=== PATIENT | female | born 1980 | race Caucasian/White ===

== ENCOUNTER 2018-11-20 05:33 | Inpatient (IN) | payer OTHER ==
[~2018-11-20] VITALS: Ht 167.6 cm; Wt 93.7 kg
[~2018-11-20 05:33] MED LIST: DOXY1TAB3 PO; FER325 PO; OMEP10CA4 PO; PREN-15 PO
[2018-11-20 05:44] VITALS: BP 100/66; PULSE 76; RESP 18
[2018-11-20 06:16] VITALS: Ht 167.6 cm; Wt 93.7 kg
--- NOTE | 2018-11-20 08:39 | TRIAGE ---
OB Triage Datetime Report Generated by CPN: 11/20/2018 08:38 Datetime: 11/20/2018 07:00 Labor Evaluation Frequency: x3 Monitor Mode: External Duration (sec)2399: 60-150 Quality: Mild Pattern: Normal: <= 5 Contractions in 10 Minutes Resting Tone [place]: Relaxed Heart Rate FHR Baseline Rate: 140 Monitor Mode: External US Variability: Moderate 6-25 bpm Accelerations: 15X15 Decelerations: None Category: Category I Datetime: 11/20/2018 06:00 Labor Evaluation Frequency: x1 Monitor Mode: External Duration (sec)2399: 170 Quality: Mild Pattern: Normal: <= 5 Contractions in 10 Minutes Resting Tone [place]: Relaxed Heart Rate FHR Baseline Rate: 135 Monitor Mode: External US Variability: Minimal - Undetectable to <=5 bpm Accelerations: 15X15 Category: Category II Datetime: 11/20/2018 05:47 Time of Arrival: 11/20/2018 05:25 EGA: 37.0 Arrived By: Wheelchair Arrived From: Home Chief Complaint: UC's Movement: Decreased Contractions: Regular Time Contractions Began: 11/19/2018 22:30 Contractions: Every 5 min Rupture of Membranes: Denies Vaginal Bleeding: None Vaginal Discharge: Denies Recent Sexual Intercouse: Denies Abdominal Trauma: Not Applicable Patient Complaints: Contractions Time Provider Notified: 11/20/2018 06:10 Provider Notified: Dr. Rasmussen Initial Plan: CEFM, VE Datetime: 11/20/2018 05:44 Stage of : OB Triage Assessment Type: Triage Maternal Assessment Level of Consciousness: Keenly Alert, Responsive DTR's/Clonus: DTRs 2+; No Clonus Headache: Denies Blurred Vision: No Respiratory Effort: Unlabored; Regular Rhythm; Equal Expansion Breath Sounds, Left: Clear and Equal Breath Sounds, Right: Clear and Equal Nausea/Vomiting: Denies RUQ Epigastric Pain: Denies Lower Extremities Edema: Bilateral Lower Extremities Degree: 2+ Upper Extremities Edema: None Degree: None Facial Edema: None Temperature Route: Oral Fall Risk Assessment History of Falling: (0) No Secondary Diagnosis: (0) No Ambulatory Aid: (0) Bedrest/Nurse Assist IV Therapy: (0) No Gait: (0) Normal/Bedrest/Immobile Mental Status: (0) Oriented to Own Ability Fall Score: 0 Fall Risk Score Definition: No Risk: No action required Pain Assessment Pain Scale: 6 Pain Presence: Intermittent Pain Type: Cramping Pain Location: Abdomen Datetime: 11/20/2018 05:36 Vaginal Exam Dilatation (cms): 2.0 Effacement (%): 70 Station: -2 Exam By: Estela Zamora RN Membrane Status: Intact Vaginal Bleeding: None Cervix, Consistency: Moderate Cervix, Position: Posterior Presentation 'A': Cephalic Datetime: 11/06/2018 09:49 Fall Score: 0 Fall Risk Score Definition: No Risk: No action required Datetime: 11/06/2018 09:47 EGA: 35.0 Datetime: 11/04/2018 14:00 EGA: 34.5 Datetime: 11/04/2018 13:53 Fall Score: 0 Fall Risk Score Definition: No Risk: No action required
--- NOTE | 2018-11-20 09:39 | HP ---
Date/Time of Note Date/Time of Note DATE: 11/20/18 TIME: 09:37 OB - History Hx of Present Free Text/Dictation 38-year-old 4 para 3 with due date December 11, 2018 with at 37 weeks who reports to labor and delivery complaining of uterine contractions. On examination she is only 2 cm. When she arrived to labor and delivery she had multiple prolonged deceleration that resemble late decelerations. After that NST became reassuring with accelerations present and no further decelerations and moderate variability. Due to early nature of labor that she is experiencing with contractions and presence of decelerations a spontaneously on the monitor I feel uncomfortable to discharge patient home. She will be admitted for labor augmentation. Early term discussed with patient and patient agrees to be augmented. Care: Good Care Ultrasounds: Normal mid trimester US Obstetrical Complications: None Medical Complications: None Past Family/Social History * Past Medical, Surgical, Family and Obstetric Histories reviewed from chart. OB Admission Exam Vital Signs Vital Signs Vital Signs Date Temp Pulse Resp B/P (MAP) Pulse Ox O2 O2 Flow FiO2 Time Delivery Rate 11/20/18 98.1 76 18 100/66 Room Air 05:44 (77) Physical Exam HEENT: WNL Heart: Rhythm Normal Lungs: Clear, Equal Abdomen: WNL Extremities: Normal Reflexes: Normal Cervical Dilatation: 2cm OB Assessment/Plan Other Assessment: Early labor. IUP at 37 weeks NST category 1 at this time but had a prolonged decelerations on arrival Induction Method: per Pitocin Protocol EDGAR LUU MD Nov 20, 2018 09:39
[2018-11-20] MEDS ORDERED: LIDOCAINE 1% (MPF) 30 ML INJ INJ PRN (10:30)
[2018-11-20] MEDS ORDERED: MISOPROSTOL 200 MCG TAB PR PRN (10:30)
[2018-11-20] MEDS ORDERED: OXYTOCIN 30 UNITS/LR 500 ML IV PRN (10:30)
[2018-11-20] MEDS ORDERED: CARBOPROST 250 MCG INJ IM PRN (10:30)
[2018-11-20] MEDS ORDERED: OXYTOCIN 30 UNITS/LR 500 ML IV SCH ×3 (10:30)
[2018-11-20] MEDS ORDERED: BUTORPHANOL 2 MG INJ IV PRN (10:30)
[2018-11-20] MEDS ORDERED: IBUPROFEN 600 MG TAB PO PRN (10:30)
[2018-11-20] MEDS ORDERED: METHYLERGONOVINE 0.2 MG INJ IM PRN (10:30)
[2018-11-20] MEDS: LACTATED RINGER'S 1,000 ML IV SCH ×3 (11:00→17:24)
[2018-11-20] MEDS ORDERED: LACTATED RINGER'S 1,000 ML IV PRN (17:24)
--- NOTE | 2018-11-20 17:52 | PREAC ---
Date/Time of Note Date/Time of Note DATE: 11/20/18 TIME: 17:51 Anesthesia Eval and Record Evaluation Time Pre-Procedure Interview DATE: 11/20/18 TIME: 17:51 Age 38 Sex female NPO: 8 hrs Preoperative diagnosis intrauterine Planned procedure labor epidural Past Medical History Past Medical History: Includes : : (4), Para: (3), Gestational age: (37) Surgery & Anesthesia Issues No known issue Meds Anticoagulation: No Beta Tanika within 24 hr: No Reason Beta Tanika not given: Pt. not on B-Tanika Reported Medications Doxylamine/Pyridoxine Hcl (DICLEGIS DR 10-10 MG TABLET) 1 Each Tablet.dr, 1 TAB PO, TAB 11/20/18 Ferrous Sulfate* (Ferrous Sulfate*) 325 Mg Tabec, 325 MG PO DAILY, TAB 11/06/18 Omeprazole* (Omeprazole*) 10 Mg Capsule.dr, 10 MG PO DAILY, #30 CAP 11/06/18 Vit/Fe Fumarate/Fa (Prenafirst Tablet) 1 Tab Tablet, 1 TAB PO 08/29/12 Current Medications Butorphanol Tartrate (Stadol) 2 mg Q2H PRN IV .PAIN SCALE 6-10; Start 11/20/18 at 10:30 Lidocaine (Xylocaine 1% (Mpf)) 30 ml ONCE PRN INJ .EPISIOTOMY; Start 11/20/18 at 10:30 Oxytocin/Lactated Ringer's 500 ml @ 500 mls/hr ONCE POST IV ; Start 11/20/18 at 10:30 Oxytocin/Lactated Ringer's 500 ml @ 125 mls/hr POST IV ; Start 11/20/18 at 10:30 Ibuprofen (Motrin) 600 mg ONCE PRN PO .PAIN 1-5; Start 11/20/18 at 10:30 Oxytocin/Lactated Ringer's 500 ml @ 0 mls/hr ONCE PRN IV .VAGINAL BLEEDING; Start 11/20/18 at 10:30 Methylergonovine Maleate (Methergine) 0.2 mg ONCE PRN IM .VAGINAL BLEEDING; Start 11/20/18 at 10:30 Carboprost Tromethamine (Hemabate) 250 mcg ONCE PRN IM .VAGINAL BLEEDING; Start 11/20/18 at 10:30 Misoprostol (Cytotec) 1,000 mcg ONCE PRN NV .VAGINAL BLEEDING; Start 11/20/18 at 10:30 Oxytocin/Lactated Ringer's 500 ml @ 0 mls/hr FOR AUGMENTATION IV Last administered on 11/20/18at 14:50; Admin Dose 1 MLS/HR; Start 11/20/18 at 10:30 Lactated Ringer's 1,000 ml @ 125 mls/hr Q8H IV Last administered on 11/20/18at 17:24; Admin Dose 125 MLS/HR; Start 11/20/18 at 15:00 Lactated Ringer's 1,000 ml @ 2,000 mls/hr Q30M PRN IV .ANESTHESIA; Start 11/20/18 at 17:24 Meds reviewed: Yes Allergies Coded Allergies: aluminum hydroxide (Verified Allergy, Mild, PAIN, 11/06/18) calcium carbonate (Verified Allergy, Mild, PAIN, 11/06/18) magnesium (Verified Allergy, Mild, PAIN, 11/06/18) magnesium hydroxide (Verified Allergy, Mild, PAIN, 11/06/18) simethicone (Verified Allergy, Mild, PAIN, 11/06/18) Allergies Reviewed: Yes Labs/Studies Labs Reviewed: Reviewed by anesthesiologist Result Diagram: 11/20/18 1038 Laboratory Tests 11/20/18 10:38 Blood Bank Test 11/20/18 10:38 Antibody Screen NEGATIVE Blood Type A POSITIVE Rh Immune Globulin Candidate NO test: N/A Pre-procedure Exam Last vitals Vital Signs Date Temp Pulse Resp B/P (MAP) Pulse Ox O2 O2 Flow FiO2 Time Delivery Rate 11/20/18 98.1 76 18 100/66 Room Air 05:44 (77) Airway: Adequate mouth opening, Adequate thyromental dist Mallampati: Mallampati II Teeth: Normal Lung: Normal Heart: Normal ASA Physical Status ASA physical status: 2 Emergency: None Planned Anesthetic Neuraxial: Epidural Planned Pain Management Epidural, Parenteral pain med Pre-operative Attestations Prior to commencing anesthesia and surgery, the patient was re-evaluated, there was verification of: *The patient's identity *The results of appropriate recent lab work and preoperative vital signs *The above evaluation not changing prior to induction *Anesthetic plan, risk benefits, alternative and complications discussed with patient/family; questions answered; patient/family understands, accepts and wishes to proceed. RONI SCHMIDT MD Nov 20, 2018 17:52
[2018-11-20] MEDS ORDERED: FENTAnyl 2MCG/ML-ROPIV 0.2% 100 ML ONE (17:54)
[2018-11-20] MEDS ORDERED: FENTAnyl 2MCG/ML-ROPIV 0.2% 100 ML BAG EPI SCH (18:00)
[2018-11-20] MEDS ORDERED: ONDANSETRON 4 MG INJ IV PRN (18:00)
[2018-11-20] MEDS ORDERED: NALOXONE (0.4 MG/ML) INJ IV PRN (18:00)
[2018-11-20] MEDS ORDERED: DIPHENHYDRAMINE 50 MG INJ IV PRN (18:00)
--- NOTE | 2018-11-20 18:52 | PAC ---
Date/Time of Note Date/Time of Note DATE: 11/20/18 TIME: 18:52 Post-Anesthesia Notes Post-Anesthesia Note Last documented vital signs Vital Signs Date Temp Pulse Resp B/P (MAP) Pulse Ox O2 O2 Flow FiO2 Time Delivery Rate 11/20/18 98.1 76 18 100/66 Room Air 05:44 (77) Activity: WNL Respiratory function: WNL Cardiovascular function: WNL Mental status: Baseline Pain reasonably controlled: Yes Hydration appropriate: Yes Nausea/Vomiting absent: Yes Comments BP: 112/64 HR: 78 RR: 16 T: 98 SaO2: 100% RONI SCHMIDT MD Nov 20, 2018 18:52
--- NOTE | 2018-11-20 19:28 | QN ---
Documentation Comment progress note patient seen and evaluated no complaints positive epidural vs stable afebrile ab gravid nt extremity no edema no calf tenderness ve 2-3/8/-2 arom clear fhr cat 1 toco regular a/ iup term in labor, continue pitocin for augmentation p/ anticipate vaginal delivery KORI ORR MD Nov 20, 2018 19:28
--- NOTE | 2018-11-21 02:32 | LDN ---
Date/Time of Note Date/Time of Note DATE: 11/21/18 TIME: 02:29 Delivery Summary of normal male with tight nuchal cord Weeks of Gestation 37w Placenta Delivered: Spontaneously, Intact & Complete Meconium: none Episiotomy: No Perineal laceration: 0 Laceration repair: vaginal lac 000ch gut Anesthesia type: Epidural Estimated blood loss: 200 Sponge & Needle done & correct: Yes All needle counts correct: Yes Any foreign bodies felt in the: No Delivery Information Sex Infant Sex: male Apgars 1 Minute: 8 5 Minute: 9 Suctioning Nose & mouth suctioned at diana: Yes Delee suction performed: Yes Umbilical Cord Umbilical cord with: 3 Vessels Cord presentations: nuchal cord Nuchal cord present X: 1 Cord Blood was obtained: Yes Mother & Baby Disposition Disposition Mom & Baby to Maternity; Good: Yes Mom transferred to: Other Baby to NICU: No () VISHAL VIZCAINO MD Nov 21, 2018 02:32
[2018-11-21 04:00] VITALS: BP 109/68; PULSE 74; RESP 18
[2018-11-21] MEDS ORDERED: MISOPROSTOL 200 MCG TAB PR PRN (05:00)
[2018-11-21] MEDS ORDERED: ZOLPIDEM 5 MG TAB PO PRN (05:00)
[2018-11-21] MEDS ORDERED: LANOLIN HPA 1 PKT TOP PRN (05:00)
[2018-11-21] MEDS ORDERED: OXYTOCIN 30 UNITS/LR 500 ML IV PRN (05:00)
[2018-11-21] MEDS ORDERED: WITCH HAZEL/GLYCERIN PAD PR PRN (05:00)
[2018-11-21] MEDS ORDERED: BENZOCAINE 20% 56 ML SPRAY TOP PRN (05:00)
[2018-11-21] MEDS ORDERED: CARBOPROST 250 MCG INJ IM PRN (05:00)
[2018-11-21] MEDS ORDERED: METHYLERGONOVINE 0.2 MG INJ IM PRN (05:00)
[2018-11-21] MEDS: IBUPROFEN 600 MG TAB PO SCH ×3 (05:44→18:00)
[2018-11-21] MEDS ORDERED: HYDROmorphONE 1 MG/ML SYG IV ONE (07:00)
[2018-11-21 08:00] VITALS: BP 101/60; PULSE 65; RESP 18
[2018-11-21] MEDS: OXYCODONE/ASPIRIN (4.88/325) TAB PO PRN ×5 (08:13→23:35)
[2018-11-21] MEDS: SENNA/DOCUSATE NA (8.6MG/50MG) TAB PO SCH ×2 (11:57→21:00)
[2018-11-21 16:00] VITALS: BP 107/60; PULSE 69; RESP 18
[2018-11-21 19:55] VITALS: BP 108/62; PULSE 69; RESP 19
[2018-11-22 03:30] VITALS: BP 103/58; PULSE 67; RESP 18
[2018-11-22] MEDS: OXYCODONE/ASPIRIN (4.88/325) TAB PO PRN ×5 (03:30→22:07)
[2018-11-22] MEDS: IBUPROFEN 600 MG TAB PO SCH ×4 (06:00→18:00)
[2018-11-22 08:20] VITALS: BP 98/56; PULSE 66; RESP 17
[2018-11-22] MEDS: SENNA/DOCUSATE NA (8.6MG/50MG) TAB PO SCH ×2 (09:24→21:22)
[2018-11-22 16:15] VITALS: BP 95/62; PULSE 67; RESP 17
--- NOTE | 2018-11-22 17:13 | PN ---
Date/Time of Note Date/Time of Note DATE: 11/22/18 TIME: 17:11 OB Subjective Subjective Subjective PPD# 1 Patient is doing well. She denies nausea, vomiting, shortness of breath, chest pain, headache. She has been ambulating without difficulty, tolerating regular diet. Pain is well controlled on current medications OB Objective Objective Objective Vital Signs Date Temp Pulse Resp B/P (MAP) Pulse Ox O2 O2 Flow FiO2 Time Delivery Rate 11/22/18 98.1 67 17 95/62 (73) Room Air 16:15 General: AAO X 3, comfortable, NAD, appropriate mood and affect. ABD: +BS. Soft, non-tender. Uterus 2 cm below umbilicus Flank: No CVA tenderness (B/L) LE: Mild edema. No clubbing, cyanosis, thigh or calf tenderness (B/L). Homans 'sign is negative OB Assessment/Plan Other plan: 38 years old 4 para 4-0-0-4 s/p normal vaginal delivery at 37 weeks. PPD#1 - AF, VSS - Contraception methods with R/B/A/FR discussed - Hemoglobin 11.2 - Continue care DOLLY LINDER Nov 22, 2018 17:13
[2018-11-22 20:00] VITALS: BP 103/61; PULSE 74; RESP 16
[2018-11-23] MEDS: OXYCODONE/ASPIRIN (4.88/325) TAB PO PRN ×4 (03:01→15:44)
[2018-11-23 04:00] VITALS: BP 93/50; PULSE 71; RESP 16
[2018-11-23] MEDS: IBUPROFEN 600 MG TAB PO SCH ×4 (06:00→17:50)
[2018-11-23 08:00] VITALS: BP 103/65; PULSE 72; RESP 18
[2018-11-23] MEDS ORDERED: DIPHTH/TET/ACEL PERTUSS (ADULT) 0.5 ML VIAL IM* ONE (09:00)
[2018-11-23] MEDS: SENNA/DOCUSATE NA (8.6MG/50MG) TAB PO SCH (11:21)
--- NOTE | 2018-11-23 17:21 | PD.PPDC ---
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
--- NOTE | 2018-11-23 17:23 | DS ---
Date/Time of Note Date/Time of Note DATE: 11/23/18 TIME: 17:22 Obstetrical Discharge Record Final Diagnosis Final Diagnosis: Term delivered Vaginal Delivery Obstetrical Delivery: Spontaneous, Laceration, Repaired Condition on Discharge Physical Assessment Last Vitals: stable afebrile Voiding: Yes Bowel Movement: Yes Breast: Soft, non-tender, Filling Fundus: Firm Abdomen and Incision: soft nt Calf Tenderness: No Patient Condition: Fair KORI ORR MD Nov 23, 2018 17:23
== END 2018-11-23 18:25 | disposition home or self-care (01) | DRG 807 ==
LOC: OBT 05:33 → L-D 05:36 → OBT 08:15 → L-D 08:15 → MS1 11-21 04:08
PROVIDERS: ADMIT Obstetrics & Gynecology; ATTEND Obstetrics & Gynecology
PROC: 10907ZC Drainage of Amniotic Fluid, Therapeutic from Products of Conception, Via Natural or Artificial Opening (ICD-10-PCS; 2018-11-20)
PROC: 10E0XZZ Delivery of Products of Conception, External Approach (ICD-10-PCS; principal; 2018-11-21)
PROC: 0HQ9XZZ Repair Perineum Skin, External Approach (ICD-10-PCS; 2018-11-21)
DX: O76 Abnormality in fetal heart rate and rhythm complicating labor and delivery (principal); O69.1XX0 Labor and delivery complicated by cord around neck, with compression, not applicable or unspecified; O70.0 First degree perineal laceration during delivery; Z37.0 Single live birth; Z3A.37 37 weeks gestation of pregnancy
CPT/HCPCS: 62322; 76818; 85025; 85610; 85730; 86592; 86850; 86900; 86901; 87340; 90715; 99464; G0463; J2590; J3010; J7120